=== PATIENT | male | born 1990 | race Caucasian/White ===

== ENCOUNTER 2024-09-25 13:57 | Outpatient (AMB) | payer OTHER, SELFPAY ==
--- NOTE | 2024-09-25 14:45 | AM.OFFWIN_ITS ---
Intake Vital Signs 09/25/24 14:46 Height 5 ft 1.5 in Weight 138 lb BMI 25.6 BP 112/74 Blood Pressure Location Lt brachial Position Sitting Pulse 51 Pulse Source Pulse Oximeter Pulse Oximetry (%) 100 Oxygen Delivery Method Room Air Intake Visit Reasons: [employer] severe pain on middle back Intake Note: Patient here for severe middle back pain after possibly injuring himself while at martial arts. States he did try to smoke marijuana to help with pain which did not really help. Patient Tobacco Use Status: Current everyday Tobacco user Allergies No Known Allergies Allergy (Verified 09/25/24 14:52) Do you need a note to return to daycare/school/sports/work: Yes HPI HPI Comments History of Present Illness Details History of Present Illness The patient is a 33-year-old male presenting with musculoskeletal back pain. The onset of symptoms occurred following sparring in [facility] on a Wednesday night. Upon waking on Wednesday, the patient noticed a tight sensation in the middle back. Over the weekend, the symptoms temporarily improved; however, by Wednesday, the patient experienced significant exacerbation, rendering him unable to walk due to severe pain. The discomfort has been described as originating in the middle back with radiation throughout the area. The patient denied any falls or traumatic injury. The pain did not originate from the sciatic nerve. Treatment thus far includes ibuprofen, which provided slight relief, and warm showers, reported to be helpful. The patient reported difficulty standing and walking due to the pain and noted that it prevented him from performing daily activities. The patient has experienced no loss of bladder or bowel control but expressed difficulty with bathroom use due to pain. It was noted that pain impacted restful sleep, as laying down in various positions was uncomfortable. [facility] Social History Patient Tobacco Use Status: Current everyday Tobacco user Review of Systems Const All systems reviewed & are unremarkable except as noted in HPI and below Physical Exam Vital Signs: Last Vital Signs Pulse 51 09/25/24 14:46 BP 112/74 09/25/24 14:46 Pulse Ox 100 09/25/24 14:46 Oxygen Delivery Method Room Air 09/25/24 14:46 BMI result Body Mass Index 25.6 Const General: cooperative, healthy appearing and comfortable Orientation/consciousness: patient oriented x3 HEENT Head: Yes normal to inspection and Yes normocephalic General nose exam: Normal external nose present Face and sinus: Yes normal facial exam Eyes General: appearance normal, both eyes and all related structures Resp Effort & Inspection: normal respiratory effort and able to speak in complete sentences Back/Spine/Pelvis Cervical Spine: cervical ROM normal and No Cervical spine tenderness Thoracic/Lumbar Spine: thoracic and lumbar spine normal to inspection, pain with thoraco-lumbar ROM, paraspinal muscle tenderness bilaterally in the mid thoracic, No thoracic spinal tenderness and No lumbar spinal tenderness Neuro General: patient oriented x3 Assessment & Plan Assessment & Plan (1) Back pain of thoracolumbar region: Code(s): M54.50 - Low back pain, unspecified; M54.6 - Pain in thoracic spine Plan: The primary diagnosis is musculoskeletal pain due to strain of the paraspinous muscles. The management plan includes continuing with ibuprofen for pain relief. In addition, a muscle relaxer will be prescribed to address muscle spasms. The patient is advised to apply heat to the affected area through a heating pad to assist in muscle relaxation. Importantly, the patient is cautioned against the consumption of alcohol and engaging in activities such as operating heavy [employer] [place] or climbing roofs while on the muscle relaxant, as it may cause drowsiness. The medication should ideally be taken at night to minimize daytime somnolence. The patient is instructed to monitor their symptoms, and in the event of no improvement or worsening, the patient might require physical therapy consultation. Further follow-up should be discussed with a primary care provider, which the patient currently lacks. Patient was informed and verbally consented to the use of an ambient scribe for clinic note documentation during this visit. Medications: New cyclobenzaprine 5 mg PO Q8H PRN 20 tabs 0RF Muscle Spasm Coding Level of Care Code New Pt Level 3 (63656) Diagnoses Back pain of thoracolumbar region M54.50; M54.6
[2024-09-25 14:46] VITALS: BP 112/74; PULSE 51; O2SAT 100; BMI 25.6
== END 2024-09-25 15:08 | disposition home or self-care (01) ==
PROVIDERS: Visit Provider Physician Assistant
DX: M54.50 Low back pain, unspecified (principal); M54.6 Pain in thoracic spine